=== PATIENT | male | born 1995 | race Hispanic/Latino ===

== ENCOUNTER 2019-03-15 15:39 | Emergency (ER) | payer SELFPAY ==
--- NOTE | 2019-03-15 16:39 | RAD ---
EXAM: XR Foot Lt 3 View STANDARD PROVIDED CLINICAL HISTORY: Pain FINDINGS: There is no evidence for fracture or other acute osseous abnormality. Alignment appears anatomic. Mayuri nt spaces appear preserved. IMPRESSION: No evidence for an acute osseous abnormality. If there is persistent clinical concern, conservative m anagement and follow-up imaging advised.
== END 2019-03-15 18:45 | disposition home or self-care (01) ==
LOC: ERS 15:39
DX: L03.032 Cellulitis of left toe (principal)